=== PATIENT | male | born 2005 | race Caucasian/White ===

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

== ENCOUNTER 2024-09-25 10:40 | Emergency (ER) | payer OTHER, SELFPAY ==
--- NOTE | 2024-09-25 12:02 | ED.GENMED ---
History of Present Illness
General
Chief Complaint: Skin Surface Trauma
Source: patient
Exam Limitations: none
Time Seen by Provider: 09/25/24 11:51
History of Present Illness
History of Present Illness:
19yo right hand dominant male with no significant past medical history presenting with his mother for evaluation of a left middle finger laceration. Patient was using a chain saw when he accidentally cut himself about an hour ago. Bleeding
controlled on arrival. No paresthesias. Tdap reportedly up to date.
Phy Exam
General Physical Exam
General Presentation: well appearing and no apparent distress
General age: appears stated age
General Skin: warm and dry
General Habitus: normal
ENT Exam
ENT Exam: normocephalic
Pulmonary Exam
Pulmonary Exam: no respiratory distress
Musculoskeletal Exam
Musculoskeletal Exam: other (L middle finger: 2cm jagged/avulsion laceration to lateral aspect of distal finger. No active bleeding. Does not involve nailbed. ROM of DIP and PIP joints intact. Cap refill and sensation intact at fingertip.)
Skin Exam
Skin Exam: normal color and warm/dry
Psychiatric Exam
Psychiatric Exam: normal mood/affect
Course
Orders/Labs/Results
Orders:
Orders
09/25/24 11:00
Finger(s)/Thumb 2 View Lt [CR Finger(s)/thumb Min 2 Vw Lt] Urgent
Comment:
Reason For Exam: lacertion with chain saw
Indicate Which Finger:: Middle Finger
Vital Signs
Initial and Last Documented VS:
Initial Vital Signs
Temp Pulse Resp Pulse Ox
97.5 F 76 18 100
09/25/24 10:53 09/25/24 10:53 09/25/24 10:53 09/25/24 10:53
Last Documented Vital Signs
Temp Pulse Resp Pulse Ox
97.5 F 76 18 100
09/25/24 10:53 09/25/24 10:53 09/25/24 10:53 09/25/24 10:53
Procedures
Laceration Closure
Left Middle Distal Finger:
Size of Wound in cm: 2
Description of Wound Edges: ragged
Preparation: cleaned with saline
Anesthesia: 1% Lidocaine and Digital-Regional
Revision/Debridement: minor revision and debrided
Wound exploration: explored to base- no FB
Type of Closure: single layer closure
Skin Closure Material: 5-0 nylon
Number of sutures: 6
MDM/Problems Addressed
Differential Diagnosis Includes:
19yoM here for a L middle finger laceration after cutting himself with a chain jaw. Jagged 2cm laceration noted with area of avulsion. Digit is neurovascularly intact with normal ROM. X-rays obtained in triage which are negative for fractures. Wound
cleaned and repaired as above. Home wound care discussed. Patient advised to have sutures removed in 10-14 days and return to the ED with any signs of infection.
*Critical Care Note
Total Time (30-74mins, 75-104mins- exclusive of procedures): Not Applicable
ED Attending Note
-
Portions of this chart may have been created with voice recognition software.� Occasional wrong word or��sound alike� substitutions may have occurred due to the inherent limitations of voice recognition software.
Discharge Plan
Departure
Patient Disposition: Home (Routine Discharge)
Date of Disposition: 09/25/24
Time of Disposition: 12:42
Patient with high blood pressure during this ER visit?: No
Discharge Problem:
Laceration of left middle finger
Instructions: Laceration Repair With Stitches (DC)
Prescriptions:
No Action
cetirizine 10 MG tablet
10 mg PO DAILY
Referrals:
Garrett Martinez DO [Family Provider] -
Activity Restrictions/Additional Instructions:
Change dressings daily and keep wound clean and dry. Sutures need to be removed in 10-14 days.
Return to the ER with any signs of infection.
Interventions
Interventions:
*Risk Screen - Suicide Last Done: 09/25/24 12:41
*General Assessment Last Done: 09/25/24 12:41
*ED- Fall Risk Assessment Last Done: 09/25/24 10:53
*ED COVID-19 Vaccine History Last Done: 09/25/24 10:53
*Nursing Disposition Last Done: 09/25/24 13:02
ED-Skin Assessment Last Done: 09/25/24 12:41
Discharge Date and Time
Discharge Date/Time: 09/25/24 13:03
Print Language: GREEK
== END 2024-09-25 13:03 | disposition home or self-care (01) ==
LOC: EMR 10:40
PROVIDERS: EMERGENCY PHYSICIAN Emergency Medicine; FAMILY PHYSICIAN Family Medicine
DX: S61.213A Laceration without foreign body of left middle finger without damage to nail, initial encounter (principal); W29.3XXA Contact with powered garden and outdoor hand tools and machinery, initial encounter
CPT/HCPCS: 99283; 12001; 73140

== ENCOUNTER 2025-01-09 09:01 | Emergency (ER) | payer OTHER, SELFPAY ==
[2025-01-09 09:05] VITALS: BP 141/87
[2025-01-09] MEDS: ZOFRAN 4 MG IV (09:50)
[2025-01-09] MEDS: NSS 1000 IV (09:50)
[2025-01-09 09:56] VITALS: BP 136/71; BMI 25.1
[2025-01-09 10:00] VITALS: BP 131/73
[2025-01-09] MEDS: DECADRON 10 MG IV (10:00)
--- NOTE | 2025-01-09 10:21 | ED.GENMED ---
History of Present Illness
<Shaun Aguirre PA-C - Last Filed: 01/09/25 13:29>
General
Chief Complaint: Headache
Source: patient and family
Time Seen by Provider: 01/09/25 09:46
History of Present Illness
History of Present Illness:
19-year-old male with a reported past medical history of complex migraines who presents to the emergency department for evaluation after awakening at 4:30 AM this morning with a migraine with visual aura on the right side stating he had loss of
vision at this time and this was accompanied with right upper extremity weakness and speech difficulties. Mother states patient will often have visual auras as part of his migraines as well as has had extremity weakness/numbness in the past but
that the symptoms are normally not as long-lasting. Patient saw his neurologist in December and had not had a complex migraine in over a year and it was thought patient may not continue seeing neurology on a regular basis. Patient did take 2
Excedrin with no relief. He notes that he has had multiple side effects with triptan medications in the past. He of note, patient saw his chiropractor yesterday and reports that he did have a neck adjustment done but was not having any symptoms at
the time following the adjustment.
Past History
<Shaun Aguirre PA-C - Last Filed: 01/09/25 13:29>
Past History
ED Past Medical History: Other (Migraine headaches)
ED Past Surgical History: None
Social History
Tobacco: Non-smoker
Alcohol: None
Drug: None
Personal: Single
Living: with family
Review of Systems
<Shaun Aguirre PA-C - Last Filed: 01/09/25 13:29>
Review of Systems
All Other Systems: ROS reviewed and negative except as documented in HPI and ROS
Phy Exam
<Shaun Aguirre PA-C - Last Filed: 01/09/25 13:29>
Physical Exam
Physical Exam:
GENERAL: Alert , covering eyes with an eye shield, appears uncomfortable
HEAD: Normocephalic atraumatic
EYE: pupils equal and reactive, EOMI, pupils 4mm b/l
NECK: Supple, no meningeal irritation
ENT: o/p clr, mmm.
CARDIAC: Tachycardic rate and regular rhythm .
LUNGS: Clear breath sounds bilaterally, no acute respiratory distress, no wheezes/rales/rhonchi
NEUROLOGICAL: Alert and oriented, speech slow and ? slurred, non ataxic, FROM all extremities with intact and equal sensation
SKIN: Warm and dry, skin intact.
MUSCULOSKELETAL: No edema, well perfused.
PSYCH: Normal and appropriate interaction.
Scores
<Shaun Aguirre PA-C - Last Filed: 01/09/25 13:29>
Heart Failure Risk
Heart Failure Risk Score: Not Applicable
Heart Score for Chest Pain Patients
STEMI patient?: Not applicable
Withdrawal Assessment of Alcohol
Withdrawal Assessment Completed?: Not applicable
Course
<Shaun Aguirre PA-C - Last Filed: 01/09/25 13:29>
Orders/Labs/Results
Orders:
Orders
01/09/25 09:47
Ondansetron Injectable [Zofran] 4 mg .ROUTE .[facility]
01/09/25 09:49
0.9% Sodium Chloride 1000 ml [Nss] 1,000 ml IV BOLUS
01/09/25 09:50
Ondansetron Injectable [Zofran] 4 mg IV NOW STA
01/09/25 09:55
CT Head & Neck Angio W/wo IV Urgent
Comment:
Reason For Exam: severe headache, visual loss, RUE weak
Dexamethasone Sod Phosphate [Decadron] 10 mg IV NOW STA
01/09/25 10:07
Complete Blood Count/With Diff Urgent
Comprehensive Metabolic Panel Urgent
01/09/25 10:31
Diphenhydramine [Benadryl] 25 mg IV NOW STA
Abnormal Lab Results
01/09/25
10:07
WBC 11.8 H 10^3/uL
(4.8-10.8)
Abs Immat Gran (auto) 0.1 H 10^3/uL
(0-0.05)
Absolute Neuts (auto) 9.7 H 10^3/uL
(1.4-6.5)
Neutrophils % 82.6 H %
(42.2-75.2)
Lymphocytes % 11.9 L %
(20.5-51.1)
Glucose 180 H mg/dl
(70-99)
Albumin 5.1 H g/dl
(3.5-5.0)
01/09/25 10:07
01/09/25 10:07
Vital Signs
Initial and Last Documented VS:
Initial Vital Signs
Temp Pulse Resp BP Pulse Ox
98.5 F 109 16 141/87 98
01/09/25 09:05 01/09/25 09:05 01/09/25 09:05 01/09/25 09:05 01/09/25 09:05
Last Documented Vital Signs
Temp Pulse Resp BP Pulse Ox
98.5 F 109 16 116/66 99
01/09/25 09:05 01/09/25 09:05 01/09/25 09:05 01/09/25 13:05 01/09/25 13:05
<Michael Rico MD - Last Filed: 01/09/25 11:03>
Orders/Labs/Results
Orders:
Orders
01/09/25 09:47
Ondansetron Injectable [Zofran] 4 mg .ROUTE .[facility]
01/09/25 09:49
0.9% Sodium Chloride 1000 ml [Nss] 1,000 ml IV BOLUS
01/09/25 09:50
Ondansetron Injectable [Zofran] 4 mg IV NOW STA
01/09/25 09:55
CT Head & Neck Angio W/wo IV Urgent
Comment:
Reason For Exam: severe headache, visual loss, RUE weak
Dexamethasone Sod Phosphate [Decadron] 10 mg IV NOW STA
01/09/25 10:07
Complete Blood Count/With Diff Urgent
Comprehensive Metabolic Panel Urgent
01/09/25 10:31
Diphenhydramine [Benadryl] 25 mg IV NOW STA
Abnormal Lab Results
01/09/25
10:07
WBC 11.8 H 10^3/uL
(4.8-10.8)
Abs Immat Gran (auto) 0.1 H 10^3/uL
(0-0.05)
Absolute Neuts (auto) 9.7 H 10^3/uL
(1.4-6.5)
Neutrophils % 82.6 H %
(42.2-75.2)
Lymphocytes % 11.9 L %
(20.5-51.1)
Glucose 180 H mg/dl
(70-99)
Albumin 5.1 H g/dl
(3.5-5.0)
01/09/25 10:07
01/09/25 10:07
Vital Signs
Initial and Last Documented VS:
Initial Vital Signs
Temp Pulse Resp BP Pulse Ox
98.5 F 109 16 141/87 98
01/09/25 09:05 01/09/25 09:05 01/09/25 09:05 01/09/25 09:05 01/09/25 09:05
Last Documented Vital Signs
Temp Pulse Resp BP Pulse Ox
98.5 F 109 16 116/66 99
01/09/25 09:05 01/09/25 09:05 01/09/25 09:05 01/09/25 13:05 01/09/25 13:05
<Shaun Aguirre PA-C - Last Filed: 01/09/25 13:29>
MDM/Problems Addressed
Differential Diagnosis Includes:
Complex migraine
CVA
ICH
Dissection
Infectious etiologies considered but thought to be much less likely
Tension headache
Cluster headache
Idiopathic Intracranial Hypertension
MDM/Problems Addressed:
19-year-old male presenting to the emergency department for evaluation moderate to severe headache accompanied with visual disturbance as well as extremity related weakness/numbness. The headache and visual disturbance remain. Similar
presentations with migraines in the past. Today seem more severe. Given the description of the headache combined with recent chiropractic manipulation will obtain CTA in addition to CT of the head. Patient did take 2 Excedrin Migraine already.
Will treat with Zofran, Benadryl and Decadron. Will hold on any further anti-inflammatories until CT results known. Consult with neuro.
Chronic conditions affecting care: Neurological disorder (Migraine disorder)
Acute Exacerbation and/or Progression of Chronic Illness: Neurological disorder (migraines)
<Shaun Aguirre PA-C - Last Filed: 01/09/25 13:29>
*Radiology
Radiology exam reviewed: radiology read reviewed
*Pulse Oximetry
SaO2: 100
Oxygen Mode of Delivery: Room air
Patient hypoxic: no
*Critical Care Note
Total Time (30-74mins, 75-104mins- exclusive of procedures): Not Applicable
<Shaun Aguirre PA-C - Last Filed: 01/09/25 13:29>
Patient Management
Escalation/DeEscalation of care consider admission/obs:
Patient's imaging studies unremarkable. He reports feeling significantly improved with IV medications and feels comfortable being discharged home. He will follow-up with his neurologist as an outpatient. Aware of return precautions to the ER.
ED Attending Note
<Shaun Aguirre PA-C - Last Filed: 01/09/25 13:29>
-
Portions of this chart may have been created with voice recognition software.� Occasional wrong word or��sound alike� substitutions may have occurred due to the inherent limitations of voice recognition software.
<Michael Rico MD - Last Filed: 01/09/25 11:03>
ED Attending Note
Patient seen and examined by attending physician: Yes
I performed the substantive portion of visit, reviewed & personally made and approve the management plan that is documented in note by myself or FEDER[place].: Yes
ED Attending Note:
39-year-old male presents with retrobulbar headache. Initially described as behind the right eye. To me described it behind the left eye. Some nausea. Started at 4 AM. Has a long history of migraines but has not had one in about a year. Goes
to chiropractor for routine manipulation that helps prevent his migraines. Did have a manipulation done yesterday. Having some trouble with speech. No other neurologic symptoms.
Patient is awake and alert oriented. Speech is normal however at times has trouble finding certain words. Extraocular muscles intact. Cranial nerves II through XII intact. Except for again possibly a mild expressive aphasia. Cdl Program Coordinator are normal.
Lower extremity strength normal. Warm and dry. Perfusing well. Regular rate and rhythm no murmur. No respiratory distress.
Impression is probable complex migraine. However with chiropractic manipulation will require CT angiography. Also contacted neurology.
Discharge Plan
Departure
Patient Disposition: Home (Routine Discharge)
Date of Disposition: 01/09/25
Time of Disposition: 12:58
Patient with high blood pressure during this ER visit?: No
Discharge Problem:
Migraine
Instructions: Migraines (DC)
Prescriptions:
No Action
cetirizine 10 MG tablet
10 mg PO DAILY
Referrals:
Garrett Martinez DO [Family Provider, Family Practice]
Stand Alone Forms: Back to School, Return to Work
Interventions
Interventions:
*Risk Screen - Suicide Last Done: 01/09/25 10:15
*General Assessment Last Done: 01/09/25 09:57
*Neglect/Abuse Screening Last Done: 01/09/25 10:15
*ED- Fall Risk Assessment Last Done: 01/09/25 09:56
*ED COVID-19 Vaccine History Last Done: 01/09/25 09:56
*Nursing Disposition Last Done: 01/09/25 13:09
ED- Neurological Assessment Last Done: 01/09/25 09:53
Discharge Date and Time
Discharge Date/Time: 01/09/25 13:09
Print Language: GERMAN
[2025-01-09 10:28] LABS: Hematocrit 43.6 % (39.0-52.0); Hemoglobin 15.6 g/dL (13.0-18.0); Mean Corp Hgb Conc. 35.8 g/dL (33.0-37.0); Mean Corpuscular Volume 86.2 fL (80.0-94.0); Nucleated Red Blood Cells % 0 % (-); Platelet Count 293 10^3/uL (130-400); Red Cell Dist. Width 11.5 % (11.5-14.5)
[2025-01-09 10:46] LABS: ALT (SGPT) 20 U/L (0-50); AST (SGOT) 25 U/L (17-59); Albumin 5.1 g/dl (3.5-5.0); Alkaline Phosphatase 84 U/L (38-126); Blood Urea Nitrogen 15 mg/dl (9-20); Calcium 10.0 mg/dl (8.4-10.2); Carbon Dioxide 24 mmol/L (22-30); Chloride 105 mmol/L (98-107); Estimated Creatinine Clearance 122 ml/min; Glucose 180 mg/dl (70-99); Potassium 4.3 mmol/L (3.5-5.1); Sodium 139 mmol/L (135-145); Total Protein 7.9 g/dl (6.3-8.2); eGFR > 60.00
[2025-01-09] MEDS: BENADRYL 25 MG IV (10:50)
[2025-01-09 11:00] VITALS: BP 124/68
[2025-01-09 13:05] VITALS: BP 116/66
== END 2025-01-09 13:09 | disposition home or self-care (01) ==
LOC: EMR 09:01
PROVIDERS: Physician Assistant Medical; EMERGENCY PHYSICIAN Emergency Medicine; FAMILY PHYSICIAN Family Medicine
DX: G43.109 Migraine with aura, not intractable, without status migrainosus (principal); H54.7 Unspecified visual loss; R11.0 Nausea; Z91.030 Bee allergy status
CPT/HCPCS: 99284; 96361; 96374; 96375 ×2; 70496; 70498; 80053; 85025; Q9967